=== PATIENT | male | born 1960 | race Two or more races ===

== ENCOUNTER 2018-08-14 04:45 | Emergency (ER) | payer SELFPAY ==
[~2018-08-14] VITALS: Ht 177.8 cm; Wt 81.6 kg
[2018-08-14 04:54] VITALS: BP 158/95
[2018-08-14] MEDS ORDERED: HYDROMORPHONE INJ 0.5 MG/0.5 ML SYRINGE IM ONE (05:00)
[2018-08-14] MEDS ORDERED: CARISOPRODOL 350 MG TABLET PO ONE (05:00)
[2018-08-14] MEDS ORDERED: DEXAMETHASONE SOD PHOSPHATE 4 MG/ML VIAL IM ONE (05:00)
[2018-08-14] MEDS ORDERED: CARISOPRODOL 350 MG TABLET ONE (05:01)
[2018-08-14] MEDS ORDERED: DEXAMETHASONE SOD PHOSPHATE 10 MG/ML VIAL ONE (05:01)
[2018-08-14] MEDS ORDERED: HYDROMORPHONE INJ 0.5 MG/0.5 ML SYRINGE ONE (05:01)
== END 2018-08-14 06:00 | disposition home or self-care (01) ==
LOC: ER 04:49
DX: M54.12 Radiculopathy, cervical region (principal); M62.838 Other muscle spasm; F32.9 Major depressive disorder, single episode, unspecified; Z86.73 Personal history of transient ischemic attack (TIA), and cerebral infarction without residual deficits
CPT/HCPCS: 93005; 96372 ×2; 99283; A4606; J1100